=== PATIENT | female | born 1995 | race Caucasian/White ===

== ENCOUNTER 2019-11-20 12:12 | Emergency (ER) | payer OTHER, SELFPAY ==
--- NOTE | 2019-11-20 12:17 | ED.GENADULT ---
HPI - General Adult General Chief complaint: Ear Stated complaint: ear pain Time Seen by Provider: 11/20/19 12:17 Source: patient Mode of arrival: ambulatory Limitations: no limitations History of Present Illness HPI narrative: 23-year-old female patient presents with complaints of jaw pain to the right side. Patient states she has had a ruptured eardrum to the right ear before and is concerned that she might have an infection to the right ear causing the jaw pain. Denies any bad teeth or pain to the oral cavity that she is aware of. Denies any fevers, runny nose, sore throat, coughing, chest pain or shortness of breath. Related Data Allergies Allergy/AdvReac Type Severity Reaction Status Date / Time cefaclor Allergy Unknown Verified 02/16/19 16:48 Review of Systems Review of Systems: Narrative: CONSTITUTIONAL: Denies fever, chills, or sweats. EYES: Denies visual changes, redness, or discharge. ENT: Denies rhinorrhea, congestion, sore throat, or otalgia. Positive right jaw pain CARDIOVASCULAR: Denies chest pain, palpitations, or edema. RESPIRATORY: Denies cough or dyspnea. GASTROINTESTINAL: Denies abdominal pain, nausea, vomiting, or diarrhea. GENITOURINARY: Denies dysuria or hematuria. SKIN: Denies rash or itching. MUSCULOSKELETAL: Denies back pain, joint pain, or myalgia. NEUROLOGIC: Denies headache, numbness, or weakness. PSYCHIATRIC: Denies anxiety or depression. PMFSH Past Medical History Medical History (Updated 11/20/19 @ 12:32 by GIAN Reeder) GERD (gastroesophageal reflux disease) Irritable bowel syndrome Surgical History Surgical History (Updated 11/20/19 @ 12:32 by GIAN Reeder) History of tonsillectomy Social History Social History Gender identity (if verbalized by the patient): Female Comments At the time of my signature I agree with nursing past medical history, surgical, social, and family history. There is no relevant family history pertinent to the presenting complaint. Exam Narrative: Exam Narrative: GENERAL: Well-appearing, well-nourished, and in no acute distress. HEAD: Normocephalic, atraumatic. EYES: PERRLA and EOMI. ENT: Nares clear, no rhinorrhea or epistaxis. Mucous membranes moist. No obvious dental caries, inflammation to the gums and no broken teeth noted to the oral cavity on exam. Posterior pharynx no erythema, tonsil enlargement, exudates or lesions present. Patient does have some dry skin and history of eczema to bilateral ears. Uncertain if there is any irritation or possibly some inflammation to the right canal causing the pain. NECK: Supple. No lymphadenopathy CHEST: Clear to auscultation. No respiratory distress. HEART: Regular rate and rhythm. No murmur heard. Normal peripheral pulses. ABDOMEN: Soft, nontender, nondistended, normal active bowel sounds. EXTREMITIES: Normal range of motion. No edema. SKIN: Warm, dry, no rash. NEURO: No focal deficits. Alert and oriented x3. Course Vital Signs Vital signs: Vital Signs Temperature 36.4 C 11/20/19 12:24 Pulse Rate 96 11/20/19 12:24 Respiratory Rate 20 11/20/19 12:24 Blood Pressure 143/96 H 11/20/19 12:24 Pulse Oximetry 100 11/20/19 12:24 Temperature 36.4 C 11/20/19 12:24 Pulse Rate 96 11/20/19 12:24 Respiratory Rate 20 11/20/19 12:24 Blood Pressure 143/96 H 11/20/19 12:24 Pulse Oximetry 100 11/20/19 12:24 Vital signs reviewed. The patient has been informed that they may have pre-hypertension or Hypertension based on a BP reading in the department. I recommend that the patient call the primary care provider listed on their discharge instructions or a physician of their choice this week to arrange follow up for further evaluation of possible pre-hypertension or Hypertension Medical Decision Making Differential Diagnosis Differential Diagnosis: Differential diagnosis: Otitis media, otitis externa, perforated TM, in
[2019-11-20 12:24] VITALS: BP 143/96; PULSE 96; RESP 20; TEMP 36.4; O2SAT 100
== END 2019-11-20 12:37 | disposition home or self-care (01) ==
PROVIDERS: Emergency Provider Nurse Practitioner Family
DX: H60.501 Unspecified acute noninfective otitis externa, right ear (principal); K21.9 Gastro-esophageal reflux disease without esophagitis
CPT/HCPCS: 99213; G0463

== ENCOUNTER 2020-04-11 11:01 | Emergency (ER) | payer BC, MEDICAID, SELFPAY ==
[2020-04-11 11:10] VITALS: BP 153/95; PULSE 121; RESP 16; TEMP 37.2; O2SAT 100
--- NOTE | 2020-04-11 11:23 | ED.URI ---
HPI - URI/Sore Throat General Chief Complaint: Upper Respiratory Infection Stated Complaint: drainage/cough Source: patient Mode of arrival: ambulatory Limitations: no limitations History of Present Illness HPI Narrative: Patient is a 24-year-old female who presents with complaints of sinus pain and pressure, drainage, and headache intermittently for the past 9 to 10 days. She reports increased sinus pressure with cough over the past few days. She also reports increase in headache. She reports that she was seen in an urgent care approximately 1 week ago and given prednisone for sinus infection. She reports taking ibuprofen and Sudafed with limited relief. She denies other significant medical history. She denies known Covid exposure. MD elicited complaint: cough and sinus pain Related Data Home Medications Medication Instructions Recorded Confirmed desog-e.estradiol/e.estradiol 1 tablet PO DAILY 04/11/20 04/11/20 Allergies Allergy/AdvReac Type Severity Reaction Status Date / Time cefaclor Allergy Unknown Rash Verified 04/11/20 11:10 Review of Systems Review of Systems: Narrative: CONSTITUTIONAL: Denies fever, chills, or sweats. EYES: Denies visual changes, redness, or discharge. ENT: Reports congestion, sinus pressure CARDIOVASCULAR: Denies chest pain, palpitations, or edema. RESPIRATORY: Reports cough, denies dyspnea. GASTROINTESTINAL: Denies abdominal pain, nausea, vomiting, or diarrhea. GENITOURINARY: Denies dysuria or hematuria. SKIN: Denies rash or itching. MUSCULOSKELETAL: Denies back pain, joint pain, or myalgia. NEUROLOGIC: Reports headache, numbness, dizziness, or weakness. PSYCHIATRIC: Denies anxiety or depression. [facility] Past Medical History Medical History GERD (gastroesophageal reflux disease) Irritable bowel syndrome Surgical History Surgical History History of tonsillectomy Family History Family History Other No significant family history Social History Social History (Updated 04/11/20 @ 11:25 by GIAN Arnold) Smoking status: Never smoker Alcohol intake: never Substance use: never Gender identity (if verbalized by the patient): Female Exam Narrative: Exam Narrative: GENERAL: Well-appearing, well-nourished, and in no acute distress. HEAD: Normocephalic, atraumatic. EYES: No redness or drainage. Conjunctiva are normal. ENT: Mucous membranes pink and moist. Nares clear. Maxillary sinus tenderness with palpation. Throat normal. Uvula midline. CHEST: No respiratory distress. HEART: Tachycardic. EXTREMITIES: Normal range of motion. SKIN: Warm, dry, no rash. NEURO: No focal deficits. Alert and oriented x3. Gait steady. PSYCH: Normal affect. No signs of depression or anxiety. Course Vital Signs Vital signs: Vital Signs Temperature 37.2 C 04/11/20 11:10 Pulse Rate 121 H 04/11/20 11:10 Respiratory Rate 16 04/11/20 11:10 Blood Pressure 153/95 H 04/11/20 11:10 Pulse Oximetry 100 04/11/20 11:10 Temperature 37.2 C 04/11/20 11:10 Pulse Rate 121 H 04/11/20 11:10 Respiratory Rate 16 04/11/20 11:10 Blood Pressure 153/95 H 04/11/20 11:10 Pulse Oximetry 100 04/11/20 11:10 Reviewed MDM - URI/Sore Throat MDM Narrative Medical decision making narrative: Discussed with patient that she most likely has sinus infection. Patient to be started on antibiotics at this time. Also discussed the possibilities of Covid. Patient requesting Covid testing at this time. Patient is aware of quarantine protocols. Patient is aware that if she develops increased cough, chest pain or shortness of breath, that she is to go to the emergency department for further evaluation. Patient is stable for discharge home with outpatient follow-up as needed. Differential Diagnosis Differential diagn
== END 2020-04-11 11:44 | disposition home or self-care (01) ==
PROVIDERS: Emergency Provider Nurse Practitioner
DX: J06.9 Acute upper respiratory infection, unspecified (principal); J01.00 Acute maxillary sinusitis, unspecified; Z20.828 Contact with and (suspected) exposure to other viral communicable diseases; K21.9 Gastro-esophageal reflux disease without esophagitis
CPT/HCPCS: 99213; G0463

== ENCOUNTER 2020-04-11 11:41 | Outpatient (NON) | payer BC, MEDICAID, SELFPAY ==
[2020-04-11 23:24] LABS: SARS-CoV-2 RNA PCR Negative
== END 2020-04-11 11:42 ==
PROVIDERS: Visit Provider Nurse Practitioner
DX: Z20.828 Contact with and (suspected) exposure to other viral communicable diseases (principal); J06.9 Acute upper respiratory infection, unspecified
CPT/HCPCS: 87635; C9803; U0003

== ENCOUNTER 2021-10-26 13:39 | Emergency (ER) | payer OTHER, SELFPAY ==
[2021-10-26 13:47] VITALS: BP 137/81; PULSE 108; RESP 16; TEMP 36.4; O2SAT 99
--- NOTE | 2021-10-26 13:58 | ED.URI ---
HPI - URI/Sore Throat General Chief Complaint: Upper Respiratory Infection Stated Complaint: SORE THROAT/LOSING VOICE/BODY ACHES/FEVER Time Seen by Provider: 10/26/21 14:00 Source: patient Mode of arrival: ambulatory Limitations: no limitations History of Present Illness HPI Narrative: Ms. Su is a 25-year-old female patient presenting to the clinic today with complaints of a sore throat, runny nose, productive cough, losing voice, and low-grade fever x5 days. She also reports a little bit of sinus pressure over the ethmoid sinuses. States that she is bringing up some yellow and green phlegm. MD elicited complaint: sore throat and nasal congestion Related Data Home Medications Medication Instructions Recorded Confirmed desogestrel-e.estradiol 0.15 tablet 10/26/21 mg-0.02 mg(21)/e.estrad 0.01 mg(5) tablet (Volnea (28)) escitalopram oxalate 10 mg tablet tablet 10/26/21 risankizumab-rzaa 150 mg/mL ea subcut 10/26/21 subcutaneous pen injector (Skyrizi) Allergies Allergy/AdvReac Type Severity Reaction Status Date / Time cefaclor Allergy Unknown Rash Verified 10/26/21 13:47 Review of Systems Review of Systems: Pertinent positives per HPI. Patient denies any fever, chills, rash, headache, visual changes, dizziness, shortness of breath, chest pain, palpitations, nausea, vomiting, diarrhea, constipation, abdominal pain, or any urinary issues. [facility] Past Medical History Medical History GERD (gastroesophageal reflux disease) Irritable bowel syndrome Surgical History Surgical History History of tonsillectomy Family History Family History Other No significant family history Social History Social History Smoking status: Never smoker Alcohol intake: never Substance use: never Gender identity (if verbalized by the patient): Female Comments At the time of my signature, I reviewed and agree with the nursing past medical, surgical, social, and family history. There is no relevant family history pertinent to the patient complaint. Exam Narrative: General: Well-developed, obese, in no apparent distress Head: Normocephalic, atraumatic Eyes: Pupils equally round and reactive to light bilaterally, EOM intact, sclera and conjunctive clear, no discharge, lids normal Ears: TMs intact and clear, ear canals clear, no drainage, grossly hearing normal. Nose: Nares patent, clear nasal discharge, moderate inflammation, no sinus tenderness. Mouth: Oropharynx without lesions or masses, good dentition, MMM. Oropharynx red, postnasal drip Neck: Supple, trachea midline, no enlargement of anterior or posterior cervical nodes, no thyroid masses or goiter palpable. Cardio: Regular rate and rhythm, s1 and s2 normal, no murmur appreciated. Resp: Clear to auscultation bilaterally anteriorly and posteriorly, no rhonchi, rales, wheezing or rubs Course Course Emergency Course: Portions of this record may have been created with voice recognition software. Level of Care: Express Care Visit Vital Signs Vital signs: Vital Signs Temperature 36.4 C 10/26/21 13:47 Pulse Rate 108 H 10/26/21 13:47 Respiratory Rate 16 10/26/21 13:47 Blood Pressure 137/81 10/26/21 13:47 Pulse Oximetry 99 10/26/21 13:47 Oxygen Delivery Room Air 10/26/21 13:47 Temperature 36.4 C 10/26/21 13:47 Pulse Rate 108 H 10/26/21 13:47 Respiratory Rate 16 10/26/21 13:47 Blood Pressure 137/81 10/26/21 13:47 Pulse Oximetry 99 10/26/21 13:47 Oxygen Delivery Room Air 10/26/21 13:47 Vital signs reviewed MDM - URI/Sore Throat MDM Narrative Medical decision making narrative: At the time of visit patient is resting comfortably on the exam table. Strep screen wa
== END 2021-10-26 14:12 | disposition home or self-care (01) ==
PROVIDERS: Emergency Provider Nurse Practitioner Family; PCP Family Medicine
DX: R09.82 Postnasal drip (principal); J06.9 Acute upper respiratory infection, unspecified; J02.9 Acute pharyngitis, unspecified; K21.9 Gastro-esophageal reflux disease without esophagitis
CPT/HCPCS: 87081; 87880; 99213; G0463

== ENCOUNTER 2022-09-10 08:08 | Emergency (ER) | payer BC, SELFPAY ==
[2022-09-10 08:21] VITALS: BP 114/86; PULSE 104; RESP 16; TEMP 37.6; O2SAT 99
--- NOTE | 2022-09-10 08:21 | ED.URI ---
HPI - URI/Sore Throat General Chief Complaint: Upper Respiratory Infection Stated Complaint: cough,itchy ears,fever,congestion Time Seen by Provider: 09/10/22 08:22 Source: patient and RN notes reviewed Mode of arrival: ambulatory Limitations: no limitations History of Present Illness HPI Narrative: 26-year-old female presented for complaint of sinus congestion and drainage, cough, and body aches with fever for about 3 days. She endorses temperature up to 101 2 nights ago. She is taking Sudafed, NyQuil, and Mucinex for symptoms. Endorses sick contacts with unknown illness. She took a negative home COVID test, but states it was . She denies shortness of breath, wheezing, vomiting, diarrhea. MD elicited complaint: cough Related Data Home Medications Medication Instructions Recorded Confirmed escitalopram oxalate 10 mg tablet 1 tablet PO DAILY 10/26/21 09/10/22 desogestrel-e.estradiol 0.15 1 tablet PO DAILY 09/10/22 09/10/22 mg-0.02 mg(21)/e.estrad 0.01 mg(5) tablet (Justice (28)) Allergies Allergy/AdvReac Type Severity Reaction Status Date / Time cefaclor Allergy Unknown Rash Verified 09/10/22 08:43 Review of Systems Review of Systems: CONSTITUTIONAL: Endorses malaise, chills, sweats, fever EYES: Denies visual changes, redness, or discharge ENT: Reports rhinorrhea, congestion, sinus pain denies otalgia, sore throat CARDIOVASCULAR: Denies chest pain, palpitations, edema RESPIRATORY: Reports cough, post nasal drainage. Denies dyspnea GASTROINTESTINAL: Denies abdominal pain, vomiting, diarrhea SKIN: Denies rash or itching MUSCULOSKELETAL: Endorses myalgia NEUROLOGIC: Denies headache [facility] Past Medical History Medical History GERD (gastroesophageal reflux disease) Irritable bowel syndrome Surgical History Surgical History History of tonsillectomy Family History Family History Other No significant family history Social History Social History Smoking status: Never smoker Alcohol intake: never Substance use: never Gender identity (if verbalized by the patient): Female Exam Narrative: GENERAL: Ill-appearing, nontoxic no acute distress. HEAD: Normocephalic EYES: PERRLA, conjunctivae clear ENT: Mucous membranes moist. TMs pearly keita with dull light reflex bilaterally; no tragal tenderness. Oropharynx erythematous without lesions or exudate, tonsils absent NECK: Supple. No lymphadenopathy CHEST: Clear to auscultation, breath sounds equal. No wheezing, rhonchi, rales, or stridor. No respiratory distress, speaks in full sentences. HEART: Regular rate and rhythm. No murmur heard. SKIN: Warm, sweaty; no rash. NEURO: Alert and oriented x3. PSYCH: Normal mood and affect Course Course Emergency Course: Patient is aware of diagnosis, understands and agrees to treatment plan. Anticipatory guidance given. Patient agrees to follow-up as directed and is aware of reasons to seek care at the emergency department. Portions of this record may have been created with voice recognition software Level of Care: Express Care Visit Vital Signs Vital signs: Vital Signs Temperature 99.7 F H 09/10/22 08:21 Pulse Rate 104 H 09/10/22 08:21 Respiratory Rate 16 09/10/22 08:21 Blood Pressure 114/86 09/10/22 08:21 Pulse Oximetry 99 09/10/22 08:21 Temperature 99.7 F H 09/10/22 08:21 Pulse Rate 104 H 09/10/22 08:21 Respiratory Rate 16 09/10/22 08:21 Blood Pressure 114/86 09/10/22 08:21 Pulse Oximetry 99 09/10/22 08:21 reviewed MDM - URI/Sore Throat MDM Narrative Medical decision making narrative: Results of COVID test reviewed with patient. She declined strep testing. Discussed possible etiologies of symptoms and physical exam
== END 2022-09-10 09:16 | disposition home or self-care (01) ==
PROVIDERS: Emergency Provider Nurse Practitioner Family; PCP Family Medicine
DX: B34.9 Viral infection, unspecified (principal); Z20.822 Contact with and (suspected) exposure to COVID-19; K21.9 Gastro-esophageal reflux disease without esophagitis
CPT/HCPCS: 87426; 99213; C9803; G0463

== ENCOUNTER 2024-01-16 18:24 | Emergency (ER) | payer BC, SELFPAY ==
[2024-01-16 18:24] VITALS: BP 138/98; PULSE 107; RESP 16; TEMP 36.5; O2SAT 100
--- NOTE | 2024-01-16 18:34 | ED.GENADULT ---
HPI - General Adult General Chief complaint: Wound/Laceration Stated complaint: DOG BITE TO L HAND Time Seen by Provider: 01/16/24 18:34 Source: patient Mode of arrival: ambulatory Limitations: no limitations History of Present Illness HPI narrative: 28-year-old female patient presents to the [facility] with complaints of a dog bite to the left hand. Patient states it was her own dog that bit her. Patient states that the dog is up-to-date on all vaccines. Patient states last tetanus shot was in 2021. Related Data Home Medications Medication Instructions Recorded Confirmed escitalopram oxalate 10 mg tablet 1 tablet PO DAILY 10/26/21 09/10/22 desogestrel-e.estradiol 0.15 1 tablet PO DAILY 09/10/22 09/10/22 mg-0.02 mg(21)/e.estrad 0.01 mg(5) tablet (Justice (28)) risankizumab-rzaa 150 mg/mL mg subcut 01/16/24 subcutaneous pen injector (Skyrizi) Allergies Allergy/AdvReac Type Severity Reaction Status Date / Time cefaclor Allergy Unknown Rash Verified 01/16/24 18:31 Review of Systems Review of Systems: CONSTITUTIONAL: Denies fever, chills, or sweats. EYES: Denies visual changes, redness, or discharge. ENT: Denies rhinorrhea, congestion, sore throat, or otalgia. CARDIOVASCULAR: Denies chest pain, palpitations, or edema. RESPIRATORY: Denies cough or dyspnea. GASTROINTESTINAL: Denies abdominal pain, nausea, vomiting, or diarrhea. GENITOURINARY: Denies dysuria or hematuria. SKIN: Denies rash or itching. Positive puncture wound to left palm MUSCULOSKELETAL: Denies back pain, joint pain, or myalgia. NEUROLOGIC: Denies headache, numbness, or weakness. PSYCHIATRIC: Denies anxiety or depression. [facility] Past Medical History Medical History GERD (gastroesophageal reflux disease) Irritable bowel syndrome Surgical History Surgical History History of tonsillectomy Family History Family History Other No significant family history Social History Social History Smoking status: Never smoker Alcohol intake: never Substance use: never Gender identity (if verbalized by the patient): Female Comments At the time of my signature I agree with nursing past medical history, surgical, social, and family history. There is no relevant family history pertinent to the presenting complaint. Exam Narrative: GENERAL: Well-appearing, well-nourished, and in no acute distress. HEAD: Normocephalic, atraumatic. EYES: PERRLA and EOMI. ENT: Nares clear, no rhinorrhea or epistaxis. Mucous membranes moist. NECK: Supple. No lymphadenopathy CHEST: Clear to auscultation. No respiratory distress. HEART: Regular rate and rhythm. No murmur heard. Normal peripheral pulses. ABDOMEN: Soft, nontender, nondistended, normal active bowel sounds. EXTREMITIES: Normal range of motion. No edema. SKIN: Warm, dry, no rash. patient has small puncture wound to the left home proximal to the 5th metacarpal. Very mild bleeding at this time no surrounding erythema. No gaping wound. NEURO: No focal deficits. Alert and oriented x3. Course Course Level of Care: Express Care Visit Vital Signs Vital signs: Vital signs reviewed. Medical Decision Making MDM Narrative Medical decision making narrative: Plan of care for patient is to discharge home with oral antibiotics since she did have a dog bite puncture wound. Patient is up-to-date on tetanus. Discussed patient the importance of keeping the wound clean. Patient verbalized understanding denies any other questions or concerns at this time. Differential Diagnosis Differential Diagnosis: Differential diagnosis: Abscess, cellulitis, hidradenitis, laceration, puncture wound. Critical Care Time Critical Care Time Critical Care Time: No Discharge Plan Dis
== END 2024-01-16 18:55 | disposition home or self-care (01) ==
PROVIDERS: Emergency Provider Nurse Practitioner Family
DX: S61.432A Puncture wound without foreign body of left hand, initial encounter (principal); W54.0XXA Bitten by dog, initial encounter; K21.9 Gastro-esophageal reflux disease without esophagitis
CPT/HCPCS: 99213; G0463